=== PATIENT | male | born 1960 | race Caucasian/White ===

== ENCOUNTER 2021-12-05 08:24 | Outpatient (CLI) | payer OTHER | END 2021-12-05 15:21 | disposition home or self-care (01) | LOC: TOM 08:24 | PROVIDERS: ATTEND Internal Medicine Gastroenterology | DX: R10.31 Right lower quadrant pain (principal) ==

== ENCOUNTER 2021-12-17 06:55 | Outpatient (CLI) | payer OTHER | END 2021-12-17 07:15 | disposition home or self-care (01) | LOC: MRI 06:55 | PROVIDERS: ATTEND Ophthalmology | DX: H81.10 Benign paroxysmal vertigo, unspecified ear (principal) | CPT/HCPCS: 70553 ==

== ENCOUNTER 2022-10-15 07:05 | Outpatient (CLI) | payer OTHER | END 2022-10-15 07:25 | disposition home or self-care (01) | LOC: SONOGRAMA 07:05 | PROVIDERS: ATTEND Internal Medicine Nephrology | DX: N18.30 Chronic kidney disease, stage 3 unspecified (principal) ==

== ENCOUNTER 2024-05-02 06:25 | Outpatient (CLI) | payer OTHER | END 2024-05-02 06:50 | disposition home or self-care (01) | LOC: TOM 06:25 | DX: I27.0 Primary pulmonary hypertension (principal); I28.0 Arteriovenous fistula of pulmonary vessels; Z86.711 Personal history of pulmonary embolism | CPT/HCPCS: 71275 ==